=== PATIENT | female | born 1950 | race Caucasian/White ===

== ENCOUNTER 2021-12-25 19:52 | Inpatient (IN) | payer MEDICARE, BC ==
[~2021-12-25] VITALS: Ht 160 cm; Wt 88.6 kg
[2021-12-25 20:25] LABS: BASOPHILS % (AUTO) 0.3 % (0-1); EOSINOPHILS % (AUTO) 0.2 % (0-6); HEMATOCRIT 40.2 % (35.0-45.0); LYMPHOCYTES # (AUTO) 0.9 X10'3 (1.1-4.8); LYMPHOCYTES % (AUTO) 5.6 % (21-51); MEAN CORPUSCULAR HEMOGLOBIN 27.1 PG (27.0-31.0); MEAN CORPUSCULAR HGB CONC 32.2 g/dL (33.0-36.5); MEAN CORPUSCULAR VOLUME 84.1 FL (78-98); MEAN PLATELET VOLUME 8.2 FL (7.4-10.4); MONOCYTES # (AUTO) 0.8 X10'3 (0-0.9); MONOCYTES % (AUTO) 4.6 % (2-12); NEUTROPHILS # (AUTO) 14.7 X10'3 (1.8-7.7); NEUTROPHILS % (AUTO) 89.3 % (42-75); PLATELET COUNT 275 X10'3 (140-440); RED BLOOD COUNT 4.78 X10'6 (4.20-5.60); RED CELL DISTRIBUTION WIDTH 13.9 % (11.5-14.5); WHITE BLOOD COUNT 16.5 X10'3 (4.5-11.0)
[2021-12-25 20:33] LABS: ALANINE AMINOTRANSFERASE 24 U/L (12-78); ALBUMIN 3.7 G/DL (3.4-5.0); ALKALINE PHOSPHATASE 76 IU/L (46-116); ANION GAP 9 (8-16); ASPARTATE AMINO TRANSFERASE 19 U/L (10-37); BILIRUBIN,TOTAL 0.4 MG/DL (0.1-1.0); BLOOD UREA NITROGEN 22 MG/DL (7-18); BUN/CREATININE RATIO 23.7 (6.6-38.0); CALCIUM 8.7 MG/DL (8.5-10.1); CHLORIDE 104 MMOL/L (99-107); CREATININE 0.93 MG/DL (0.40-0.90); GLUCOSE 135 MG/DL (70-104); POTASSIUM 3.8 MMOL/L (3.5-5.1); SODIUM 138 MMOL/L (135-145); TOTAL CARBON DIOXIDE 25.2 MMOL/L (24-32); TOTAL PROTEIN 7.5 G/DL (6.4-8.2); eGFR 59 ML/MIN
[2021-12-25 20:41] LABS: LIPASE 71 U/L (73-393); MAGNESIUM 1.7 MG/DL (1.5-2.4)
[2021-12-25] MEDS ORDERED: morphine 4 MG/ML inj SYRINge IV ONE ×2 (21:15→23:15)
[2021-12-25] MEDS ORDERED: ondansetron/PF 4mg/2ml inj IV ONE (21:15)
[2021-12-25] MEDS ORDERED: cefTRIAXone 1g/NS 100ml IVPB 100 ML IV ONE (22:40)
[2021-12-25] MEDS ORDERED: normal saline 1000ml 1,000 ML IV ONE (22:40)
[2021-12-25] MEDS ORDERED: ketorolac trometh. 30mg/ml inj. IV ONE (23:15)
[2021-12-25] MEDS ORDERED: mag hydrox/Alum hydrox/simeth 30ml oral suspension PO PRN (23:45)
[2021-12-25] MEDS ORDERED: HYDROmorphone/PF 0.2 MG/ML SYRINGE IV PRN (23:45)
[2021-12-25] MEDS ORDERED: magnesium 4gm in 100ml NS 100 ML IV PRN (23:45)
[2021-12-25] MEDS ORDERED: potassium CL 10mEq/100ml bag 100 ML IV PRN (23:45)
[2021-12-25] MEDS ORDERED: potassium Cl 20 mEq SR tablet PO PRN ×2 (23:45)
[2021-12-25] MEDS ORDERED: acetaminophen 325mg tablet PO PRN (23:45)
[2021-12-25] MEDS ORDERED: HYDROmorphone inj. 0.5 MG/0.5 ML DISP.SYRIN IV PRN (23:45)
[2021-12-25] MEDS ORDERED: magnesium 2GM in 50ml NS 50 ML IV PRN (23:45)
[2021-12-25] MEDS ORDERED: ondansetron/PF 4mg/2ml inj IV PRN (23:45)
[2021-12-25 23:48] LABS: CLARITY,URINE CLEAR (Clear); COLOR,URINE YELLOW (Yellow); GLUCOSE, URINE NEGATIVE (Neg); KETONES,URINE TRACE mg/dl (Neg); LEUKOCYTE ESTERASE ,URINE NEGATIVE (Neg); NITRITES, URINE POSITIVE (Neg); OCCULT BLOOD,URINE MODERATE (Neg); PROTEIN,URINE TRACE mg/dl (Neg); UROBILINOGEN,URINE 0.2 E.U/dL (0.2-1.0)
[2021-12-25 23:50] LABS: UA COLLECTION TYPE CLN CATCH MIDSTREAM
[2021-12-25] MEDS: normal saline 1000ml 1,000 ML IV SCH (23:52)
[2021-12-26] MEDS ORDERED: OMEP20CA16 PO (00:01)
[2021-12-26] MEDS ORDERED: LISI20TA28 PO (00:01)
[2021-12-26] MEDS ORDERED: CELE-85 PO (00:01)
[2021-12-26] MEDS ORDERED: EZET10TA48 PO (00:01)
[2021-12-26 00:13] LABS: BACTERIA,URINE 3+ /HPF (Neg); SQUAMOUS EPITHELIAL CELL,UR MODERATE /LPF (FEW)
[2021-12-26 00:16] LABS: MUCUS STRANDS FEW /LPF (Neg); TRANSITIONAL EPI CELLS,URINE FEW /HPF
[2021-12-26] MEDS ORDERED: hydrALAZINE 20mg/ml inj. IV PRN (00:35)
[2021-12-26] MEDS ORDERED: iohexol 300mg/ml 100ml inj. ONE (00:56)
--- NOTE | 2021-12-26 06:37 | NUR ---
Meghan peres in EDM - 12/26/21 at 0638 by [email or web address] Received report from YASIR Cook. Pt c/o 06/17 hip pain. Will give meds as ordered
[2021-12-26] MEDS: pantoprazole 40mg Tablet.DR PO SCH (07:30)
[2021-12-26] MEDS: K and/or MAG REPLACEMENT MC SCH ×2 (07:43→20:00)
[2021-12-26] MEDS: docusate sod 100mg capsule PO SCH ×2 (07:44→20:00)
[2021-12-26] MEDS: lisinopril 20mg tablet PO SCH (07:44)
[2021-12-26] MEDS: ezetimibe 10mg tablet PO SCH (07:44)
[2021-12-26] MEDS: piperacillin/tazo 4.5gm/100ml 100 ML IV SCH ×3 (07:59→23:53)
[2021-12-26] MEDS ORDERED: non-formulary drug (Omeprazole 1 CAP) PO SCH (08:00)
[2021-12-26 08:41] LABS: BASOPHILS % (AUTO) 0.3 % (0-1); EOSINOPHILS # (AUTO) 0.1 X10'3 (0-0.9); EOSINOPHILS % (AUTO) 1.1 % (0-6); HEMATOCRIT 32.6 % (35.0-45.0); HEMOGLOBIN 10.8 g/dl (12.0-16.0); LYMPHOCYTES # (AUTO) 0.7 X10'3 (1.1-4.8); MEAN CORPUSCULAR HEMOGLOBIN 28.1 PG (27.0-31.0); MEAN CORPUSCULAR HGB CONC 33.1 g/dL (33.0-36.5); MEAN CORPUSCULAR VOLUME 84.8 FL (78-98); MEAN PLATELET VOLUME 7.9 FL (7.4-10.4); MONOCYTES # (AUTO) 0.8 X10'3 (0-0.9); MONOCYTES % (AUTO) 7.5 % (2-12); NEUTROPHILS # (AUTO) 8.9 X10'3 (1.8-7.7); NEUTROPHILS % (AUTO) 84.1 % (42-75); PLATELET COUNT 205 X10'3 (140-440); RED BLOOD COUNT 3.85 X10'6 (4.20-5.60); RED CELL DISTRIBUTION WIDTH 13.9 % (11.5-14.5); WHITE BLOOD COUNT 10.6 X10'3 (4.5-11.0)
[2021-12-26 09:09] LABS: ALANINE AMINOTRANSFERASE 54 U/L (12-78); ALBUMIN 2.7 G/DL (3.4-5.0); ALBUMIN/GLOBULIN RATIO 0.8 (1.1-1.5); ALKALINE PHOSPHATASE 64 IU/L (46-116); ANION GAP 7 (8-16); ASPARTATE AMINO TRANSFERASE 42 U/L (10-37); BILIRUBIN,TOTAL 0.4 MG/DL (0.1-1.0); BLOOD UREA NITROGEN 13 MG/DL (7-18); BUN/CREATININE RATIO 17.8 (6.6-38.0); CALCIUM 7.7 MG/DL (8.5-10.1); CHLORIDE 109 MMOL/L (99-107); CREATININE 0.73 MG/DL (0.40-0.90); GLUCOSE 125 MG/DL (70-104); MAGNESIUM 1.7 MG/DL (1.5-2.4); POTASSIUM 4.3 MMOL/L (3.5-5.1); SODIUM 141 MMOL/L (135-145); TOTAL CARBON DIOXIDE 24.9 MMOL/L (24-32); TOTAL PROTEIN 5.9 G/DL (6.4-8.2); eGFR 78 ML/MIN
[2021-12-26] MEDS: normal saline 1000ml 1,000 ML IV SCH ×2 (10:03→19:45)
[2021-12-26] MEDS ORDERED: FLUT15.87 NS (12:09)
--- NOTE | 2021-12-26 16:16 | NUR ---
Patient states surgeon was in room and discussed procedure with her and answered her questions. Patient signed consent for surgery. Patient asked to change her DNR status; will page hospitalist.
--- NOTE | 2021-12-26 16:23 | NUR ---
Notified Dr. Yeung patient would like to change her DNR status.
--- NOTE | 2021-12-26 16:45 | NUR ---
Patient arrived to floor and was made familiar with room at this time.
--- NOTE | 2021-12-26 17:24 | NUR ---
PAGER ID: [phone] MESSAGE: Enoc rogers [phone] re: [id number] Kvng, Patient does not want to be DNR. Patient wants to be limited no vent/ no intubation. Thanks
[2021-12-26 18:00] VITALS: BP 120/60
--- NOTE | 2021-12-26 18:32 | NUR ---
Problems reprioritized. Patient report given, questions answered & plan of care reviewed with Yasir COOLEY.
[2021-12-26] MEDS ORDERED: enoxaparin 40mg/0.4ml syringe SQ SCH (20:00)
[2021-12-26 22:00] VITALS: BP 125/52
[2021-12-27] VITALS (27 sets, daily range): BP systolic 93–149; BP diastolic 47–80
[2021-12-27] MEDS: normal saline 1000ml 1,000 ML IV SCH ×3 (05:45→23:55)
[2021-12-27] MEDS: docusate sod 100mg capsule PO SCH ×2 (06:39→20:30)
[2021-12-27 07:15] LABS: BASOPHILS % (AUTO) 0.5 % (0-1); EOSINOPHILS # (AUTO) 0.2 X10'3 (0-0.9); EOSINOPHILS % (AUTO) 2.7 % (0-6); HEMATOCRIT 32.5 % (35.0-45.0); HEMOGLOBIN 10.5 g/dl (12.0-16.0); LYMPHOCYTES % (AUTO) 13.5 % (21-51); MEAN CORPUSCULAR HEMOGLOBIN 27.4 PG (27.0-31.0); MEAN CORPUSCULAR HGB CONC 32.4 g/dL (33.0-36.5); MEAN CORPUSCULAR VOLUME 84.7 FL (78-98); MEAN PLATELET VOLUME 8.5 FL (7.4-10.4); MONOCYTES # (AUTO) 0.6 X10'3 (0-0.9); MONOCYTES % (AUTO) 7.7 % (2-12); NEUTROPHILS # (AUTO) 5.6 X10'3 (1.8-7.7); NEUTROPHILS % (AUTO) 75.6 % (42-75); PLATELET COUNT 200 X10'3 (140-440); RED BLOOD COUNT 3.84 X10'6 (4.20-5.60); RED CELL DISTRIBUTION WIDTH 14.2 % (11.5-14.5); WHITE BLOOD COUNT 7.3 X10'3 (4.5-11.0)
[2021-12-27] MEDS: pantoprazole 40mg Tablet.DR PO SCH (07:36)
[2021-12-27] MEDS: ezetimibe 10mg tablet PO SCH (07:37)
[2021-12-27] MEDS: piperacillin/tazo 4.5gm/100ml 100 ML IV SCH ×3 (07:38→23:55)
[2021-12-27 07:44] LABS: ALANINE AMINOTRANSFERASE 37 U/L (12-78); ALBUMIN 2.5 G/DL (3.4-5.0); ALBUMIN/GLOBULIN RATIO 0.8 (1.1-1.5); ALKALINE PHOSPHATASE 57 IU/L (46-116); ANION GAP 9 (8-16); ASPARTATE AMINO TRANSFERASE 24 U/L (10-37); BILIRUBIN,TOTAL 0.4 MG/DL (0.1-1.0); BLOOD UREA NITROGEN 12 MG/DL (7-18); BUN/CREATININE RATIO 14.5 (6.6-38.0); CALCIUM 7.8 MG/DL (8.5-10.1); CHLORIDE 109 MMOL/L (99-107); CREATININE 0.83 MG/DL (0.40-0.90); GLUCOSE 96 MG/DL (70-104); MAGNESIUM 2.1 MG/DL (1.5-2.4); POTASSIUM 3.9 MMOL/L (3.5-5.1); SODIUM 143 MMOL/L (135-145); TOTAL PROTEIN 5.8 G/DL (6.4-8.2); eGFR 67 ML/MIN
[2021-12-27] MEDS: lisinopril 20mg tablet PO SCH (08:00)
[2021-12-27] MEDS: K and/or MAG REPLACEMENT MC SCH ×2 (08:00→20:00)
[2021-12-27] MEDS: lisinopril 10 MG tablet PO SCH (13:22)
[2021-12-27] MEDS ORDERED: INDOCYANINE GREEN 25 MG/10 ML VIAL IV ONE (14:55)
--- NOTE | 2021-12-27 15:49 | NUR ---
Patient has left for surgery. Alert, oriented and in no distress.
[2021-12-27] MEDS ORDERED: LIDOcaine 1% 30ml preserv. free vial ONE (16:16)
[2021-12-27] MEDS ORDERED: BUPIVAcaine 0.5% inj/PF 30 ML ONE (16:16)
[2021-12-27] MEDS ORDERED: morphine 4 MG/ML inj SYRINge IV PRN (16:20)
[2021-12-27] MEDS ORDERED: proCHLORperazine 10 MG/2 ml inj IV PRN (16:20)
[2021-12-27] MEDS ORDERED: meperidine/PF 25mg/ml syringe IV PRN ×2 (16:20)
[2021-12-27] MEDS ORDERED: ondansetron/PF 4mg/2ml inj IV PRN (16:20)
[2021-12-27] MEDS ORDERED: morphine 2 MG/ML inj. syringe IV PRN (16:20)
[2021-12-27] MEDS ORDERED: ringers solution, lacted 1,000 ML IV SCH (16:20)
[2021-12-27] MEDS ORDERED: midazolam 1 mg/ML 2ml injection ONE (16:25)
[2021-12-27] MEDS ORDERED: fentaNYL/PF 50MCG/1 ML 2ML syringe ONE (16:25)
[2021-12-27] MEDS ORDERED: dexamethasone sod phosphate 4mg/ml inj. ONE (16:33)
[2021-12-27] MEDS ORDERED: glycopyrrolate 0.2mg/ml inj ONE (16:33)
[2021-12-27] MEDS ORDERED: sevoflurane 250ml liquid IH ONE (16:33)
[2021-12-27] MEDS ORDERED: neostigmine methylsulfate 1 MG/ML 10ml vial ONE (16:33)
[2021-12-27] MEDS ORDERED: ondansetron/PF 4mg/2ml inj ONE (16:33)
[2021-12-27] MEDS ORDERED: acetaminophen 1,000mg/100ml IV 100 ML IV ONE (17:10)
[2021-12-27] MEDS ORDERED: rocuronium 10mg/ml inj IV ONE (17:10)
[2021-12-27] MEDS ORDERED: propofol inj 20 ML IV ONE (17:11)
[2021-12-27] MEDS ORDERED: LIDOcaine 2% (20mg/ml) 5ml vial ONE (17:11)
[2021-12-27] MEDS ORDERED: meperidine/PF 25mg/ml syringe ONE (17:24)
--- NOTE | 2021-12-27 17:54 | NUR ---
Received from OR via HOSPTAL BED , accompanied by Anesthesiologist DR RIVERA and report given by Anesthesiolgist. PT PRESENTS WITH PIV 20G SULLY ROBLES, ABD DRESSING 4 BANDAIDS IGNACIO, VSS. Addendum: 12/27/21 at 1804 by Ivis Berger RN, RN Amended: Links added.
[2021-12-27] MEDS ORDERED: HYDROcodone/acetaminophen 10/325mg tab PO PRN (17:55)
[2021-12-27] MEDS ORDERED: HYDROcodone/acetaminophen 5mg/325mg tablet PO PRN (17:55)
[2021-12-27] MEDS ORDERED: naloxone 0.4 mg/ml inj IV PRN (17:55)
[2021-12-27] MEDS: meperidine/PF 25mg/ml syringe IV PRN ×4 (17:57→19:00)
--- NOTE | 2021-12-27 18:43 | NUR ---
Report given to Richi COOLEY, all questions answered. Patient still in recovery room, daughter in room waiting for patient.
--- NOTE | 2021-12-27 19:44 | NUR ---
Report called to receiving nurse CLARK COOLEY. Transferred via HOSPITAL BED TO ROOM 4022B WHERE PT HAD LEFT HER BELONGINGS IN ROOM. BED IN LOW LOCKED POSITION CALL LIGHT IN REACH, PT HOOKED UP TO VITALS MONITOR. CLARK COOLEY AT BEDSIDE EVALUATING PT. Special Issues communicated to receiving nurse. Addendum: 12/27/21 at 1958 by Ivis Berger RN RN Amended: Links added.
[2021-12-28 02:00] VITALS: BP 128/50
[2021-12-28 06:49] LABS: BASOPHILS # (AUTO) 0.1 X10'3 (0-0.2); BASOPHILS % (AUTO) 1.1 % (0-1); EOSINOPHILS % (AUTO) 0 % (0-6); HEMATOCRIT 33.5 % (35.0-45.0); HEMOGLOBIN 10.9 g/dl (12.0-16.0); LYMPHOCYTES # (AUTO) 0.3 X10'3 (1.1-4.8); LYMPHOCYTES % (AUTO) 3.3 % (21-51); MEAN CORPUSCULAR HEMOGLOBIN 27.7 PG (27.0-31.0); MEAN CORPUSCULAR HGB CONC 32.5 g/dL (33.0-36.5); MEAN CORPUSCULAR VOLUME 85.1 FL (78-98); MEAN PLATELET VOLUME 8.2 FL (7.4-10.4); MONOCYTES # (AUTO) 0.4 X10'3 (0-0.9); MONOCYTES % (AUTO) 4.4 % (2-12); NEUTROPHILS % (AUTO) 91.2 % (42-75); PLATELET COUNT 234 X10'3 (140-440); RED BLOOD COUNT 3.93 X10'6 (4.20-5.60); RED CELL DISTRIBUTION WIDTH 13.9 % (11.5-14.5); WHITE BLOOD COUNT 9.9 X10'3 (4.5-11.0)
[2021-12-28 07:10] VITALS: BP 115/54
[2021-12-28 07:22] LABS: ALANINE AMINOTRANSFERASE 49 U/L (12-78); ALBUMIN 2.5 G/DL (3.4-5.0); ALBUMIN/GLOBULIN RATIO 0.7 (1.1-1.5); ALKALINE PHOSPHATASE 57 IU/L (46-116); ANION GAP 11 (8-16); ASPARTATE AMINO TRANSFERASE 46 U/L (10-37); BILIRUBIN,TOTAL 0.4 MG/DL (0.1-1.0); BLOOD UREA NITROGEN 16 MG/DL (7-18); BUN/CREATININE RATIO 18.2 (6.6-38.0); CALCIUM 7.7 MG/DL (8.5-10.1); CHLORIDE 106 MMOL/L (99-107); CREATININE 0.88 MG/DL (0.40-0.90); GLUCOSE 122 MG/DL (70-104); MAGNESIUM 1.7 MG/DL (1.5-2.4); POTASSIUM 4.3 MMOL/L (3.5-5.1); SODIUM 140 MMOL/L (135-145); TOTAL CARBON DIOXIDE 23.3 MMOL/L (24-32); TOTAL PROTEIN 6.2 G/DL (6.4-8.2); eGFR 63 ML/MIN
[2021-12-28] MEDS: docusate sod 100mg capsule PO SCH (07:27)
[2021-12-28] MEDS: pantoprazole 40mg Tablet.DR PO SCH (07:27)
[2021-12-28] MEDS: ezetimibe 10mg tablet PO SCH (07:27)
[2021-12-28] MEDS: lisinopril 10 MG tablet PO SCH (07:27)
[2021-12-28] MEDS: piperacillin/tazo 4.5gm/100ml 100 ML IV SCH ×2 (07:28→07:35)
[2021-12-28] MEDS: K and/or MAG REPLACEMENT MC SCH (07:34)
[2021-12-28] MEDS: normal saline 1000ml 1,000 ML IV SCH (07:47)
[2021-12-28] MEDS ORDERED: enoxaparin 40mg/0.4ml syringe SQ SCH (08:00)
--- NOTE | 2021-12-28 09:11 | NUR ---
PAGER ID: [phone] MESSAGE: [id number] Redd Calderon: patient is needing to be discharged before noon if she will be going home today. that is her only ride available time. thanks! [phone] [phone]
[2021-12-28 10:12] VITALS: BP 105/55
--- NOTE | 2021-12-28 12:15 | NUR ---
Patient stable and appropriate for discharge home. IV removed, all belongings taken from room. New RX sent to preferred pharmacy by Dr. Dean. All discharge instructions and education given and reviewed with patient, all questions answered.
== END 2021-12-28 12:10 | disposition home or self-care (01) | DRG 417 ==
LOC: ER 19:53 → ED HOLD 23:47 → ORTHO 4S 12-26 16:40
PROVIDERS: ADMIT Family Medicine; ATTEND Internal Medicine
PROC: BW251ZZ Computerized Tomography (CT Scan) of Chest, Abdomen and Pelvis using Low Osmolar Contrast (ICD-10-PCS; 2021-12-26)
PROC: BF532Z0 Other Imaging of Gallbladder and Bile Ducts using Fluorescing Agent, Intraoperative (ICD-10-PCS; 2021-12-27)
PROC: 8E0W4CZ Robotic Assisted Procedure of Trunk Region, Percutaneous Endoscopic Approach (ICD-10-PCS; 2021-12-27)
PROC: 0FT44ZZ Resection of Gallbladder, Percutaneous Endoscopic Approach (ICD-10-PCS; principal; 2021-12-27 16:33)
DX: K80.01 Calculus of gallbladder with acute cholecystitis with obstruction (principal); Q79.1 Other congenital malformations of diaphragm; D64.9 Anemia, unspecified; E78.5 Hyperlipidemia, unspecified; I10 Essential (primary) hypertension; K21.9 Gastro-esophageal reflux disease without esophagitis; Z20.822 Contact with and (suspected) exposure to COVID-19; M19.90 Unspecified osteoarthritis, unspecified site; M25.511 Pain in right shoulder; Z96.651 Presence of right artificial knee joint; Z66 Do not resuscitate; Z80.0 Family history of malignant neoplasm of digestive organs; Z80.6 Family history of leukemia; Z79.899 Other long term (current) drug therapy; Z90.49 Acquired absence of other specified parts of digestive tract
CPT/HCPCS: 36415; 71045; 71260; 74177; 76700; 80053; 81001; 82948; 83690; 83735; 83880; 84484; 85025; 87077; 87081; 87088; 87186; 87635; 88304; 93005; 97161; 97530; 99285; A4215; A4618; A7000; G0378; J0131; J0696; J1100; J1170; J1885; J2175; J2250; J2270; J2405; J2543; J2704; J2710; J3010; J3490; J7030; J7120; Q9967; S0020